=== PATIENT | female | born 1985 | race Hispanic/Latino ===

== ENCOUNTER 2018-02-24 11:34 | Emergency (ER) | payer SELFPAY ==
[~2018-02-24 11:34] MED LIST: ISOVUE-370 76%-LOCM 1 ML ONE
[2018-02-24 12:21] LABS: Bilirubin Negative (Negative); Blood, Urine Trace (Negative); Clarity CLEAR (Clear); Glucose, Urine (Dipstick) Negative (Negative); Leukocyte Large (Negative); Nitrite Negative (Negative); Protein, Urine (Dipstick) Negative (Neg-Trace); Specific Gravity, Urine 1.023 (1.002-1.036); Urobilinogen 0.2 mg/dL (0.2-1.0); pH, Urine 5.5 (5.0-9.0)
[2018-02-24 12:23] LABS: Pregnancy Test - Urine (BHCG) Negative (Negative); Pregu Control Background? CLEAR/WHITE (CLR/WHITE); Pregu Control Bar Appear? YES (CONTROL BAR); Specific Gravity 1.023 (1.002-1.036)
[2018-02-24 12:24] LABS: Bacteria/HPF None Seen HPF (None Seen); Hyaline Casts/LPF 4-6 HYALINE CAST LPF (0-3 Hyaline); Pathc Cast-AUWi Flag 0.72 (0-2.49); Squamous Epithelial 0-3 HPF (0-3); WBC/HPF 21-50 HPF (0-3)
[2018-02-24] MEDS ORDERED: Ketorolac Tromethamine 30 MG/ML VIAL ONE (12:38)
[2018-02-24] MEDS ORDERED: Dicyclomine 20 MG TAB ONE (12:38)
[2018-02-24 12:52] LABS: #Eosinphils 0.4 thou/uL (0.0-0.7); #Lymphocytes 1.7 thou/uL (1.20-3.40); #Monocytes 0.4 thou/uL (0.11-0.59); #Neutrophils 5.2 thou/uL (1.40-6.50); %Basophils 0.1 % (0.0-1.0); %Eosinophils 4.9 % (0.0-10.0); %Lymphocytes 22.5 % (21.0-51.0); %Monocytes 5.2 % (0.0-10.0); %Neutrophils 67.3 % (42.0-75.0); Hemoglobin 13.7 g/dL (12.0-16.0); Mean Corpuscular HGB CONC 32.6 g/dL (32.0-36.0); Mean Corpuscular Hemoglobin 30.4 pg (27.0-31.0); Mean Corpuscular Volume 93.4 fL (78.0-98.0); Platelet Count 249 thou/uL (130-400); RBC Distribution Width 12.4 % (11.5-14.5); Red Blood Cell (RBC) Count 4.49 mill/uL (4.20-5.40); White Blood Cell (WBC) Count 7.7 thou/uL (4.8-10.8)
[2018-02-24 13:14] LABS: ALT (SGPT) 27 U/L (8-55); AST (SGOT) 25 U/L (5-34); Albumin 4.1 g/dL (3.5-5.0); Alkaline Phosphatase 82 U/L (40-150); Anion Gap 12 mmol/L (10-20); BUN (Urea Nitrogen) 10 mg/dL (7.0-18.7); Bilirubin, Total 0.7 mg/dL (0.2-1.2); Calc. Creatinine Clearance 0 mL/min (70-130); Calcium 9.6 mg/dL (7.8-10.44); Carbon Dioxide 25 mmol/L (22-29); Chloride 109 mmol/L (98-107); Estimated GFR-MDRD Greater than 90; Globulin 3.3 g/dL (2.4-3.5); Glucose 92 mg/dL (70-105); Potassium 3.6 mmol/L (3.5-5.1); Protein, Total 7.4 g/dL (6.0-8.3); Sodium 142 mmol/L (136-145)
[2018-02-24 13:27] LABS: Lipase 15 U/L (8-78)
[2018-02-24] MEDS ORDERED: Metoclopramide HCl 10 MG/2 ML VIAL ONE (13:58)
--- NOTE | 2018-02-24 14:09 | CT ---
CT OF ABDOMEN AND PELVIS PERFORMED WITH CONTRAST ENHANCEMENT: Date: 02/24/18 HISTORY: Periumbilical pain radiating to back. History of previous gallbladder surgery. COMPARISON: 05/05/12 study. FINDINGS: The lung bases are clear of infiltrates. The liver and spleen are within normal limits of size. The liver does measure 22 cm in length, but th is mainly is related to an elongated right lobe. Liver does show suggestion of some fatty change. The pancreas shows no evidence of mass. The gallbladder has been removed. Right and left adrenal glands, and right and left kidneys are normal in appearance. There is no signi ficant periaortic or mesenteric lymphadenopathy. CT of pelvis was performed with contrast enhancement. The appendix is normal. There is a small, fat-c ontaining periumbilical hernia. No free fluid is seen. Uterus is somewhat heterogeneous in appearance . Follicles are seen involving the adnexa. IMPRESSION: 1. Fatty changes of the liver. 2. Postop cholecystectomy change. 3. Minimal sigmoid diverticulosis. 4. Normal appendix. 5. Small, fat-containing periumbilical hernia. POS: [facility]
[2018-02-24] MEDS ORDERED: cefTRIAXone\\ROCEPHIN 1 GM VIAL ONE (14:21)
[2018-02-27 23:19] LABS: Chlamydia by PCR Inconclusive (NotDetected); GC by PCR Inconclusive (NotDetected)
== END 2018-02-24 14:57 | disposition home or self-care (01) ==
LOC: ERS 11:34
DX: N73.9 Female pelvic inflammatory disease, unspecified (principal); I10 Essential (primary) hypertension; K21.9 Gastro-esophageal reflux disease without esophagitis; F41.9 Anxiety disorder, unspecified; F32.9 Major depressive disorder, single episode, unspecified; F17.210 Nicotine dependence, cigarettes, uncomplicated; Z79.899 Other long term (current) drug therapy
CPT/HCPCS: 36415; 74177; 80053; 81003; 81015; 81025; 83690; 85025; 87480; 87491; 87510; 87591; 87660; 96361; 96365; 96367; 96375; J0696; J1885; J2765

== ENCOUNTER 2018-02-25 08:38 | Emergency (ER) | payer SELFPAY ==
[2018-02-25] MEDS ORDERED: ISOVUE-370 76%-LOCM 1 ML ONE (09:05)
[2018-02-25] MEDS ORDERED: diphenhydrAMINE 50 MG/ML VIAL ONE (10:06)
[2018-02-25] MEDS ORDERED: Metoclopramide HCl 10 MG/2 ML VIAL ONE (10:07)
[2018-02-25] MEDS ORDERED: Ondansetron HCl/PF 4 MG/2 ML Vial ONE (10:07)
[2018-02-25 10:12] LABS: #Eosinphils 0.3 thou/uL (0.0-0.7); #Lymphocytes 1.5 thou/uL (1.20-3.40); #Monocytes 0.5 thou/uL (0.11-0.59); #Neutrophils 6.7 thou/uL (1.40-6.50); %Basophils 0.2 % (0.0-1.0); %Lymphocytes 16.6 % (21.0-51.0); %Monocytes 5.5 % (0.0-10.0); %Neutrophils 74.7 % (42.0-75.0); Hemoglobin 12.7 g/dL (12.0-16.0); Mean Corpuscular HGB CONC 33.5 g/dL (32.0-36.0); Mean Corpuscular Hemoglobin 31.1 pg (27.0-31.0); Mean Corpuscular Volume 92.7 fL (78.0-98.0); Mean Platelet Volume 8.8 fL (7.4-10.4); Platelet Count 234 thou/uL (130-400); RBC Distribution Width 12.2 % (11.5-14.5); White Blood Cell (WBC) Count 8.9 thou/uL (4.8-10.8)
[2018-02-25 10:19] LABS: BHCG - Serum Negative (NEGATIVE); Pregs Control Background? CLEAR/WHITE (CLR/WHITE); Pregs Control Bar Appear? YES (CONTROL BAR)
[2018-02-25 10:32] LABS: ALT (SGPT) 20 U/L (8-55); AST (SGOT) 15 U/L (5-34); Albumin 3.7 g/dL (3.5-5.0); Alkaline Phosphatase 80 U/L (40-150); Anion Gap 13 mmol/L (10-20); BUN (Urea Nitrogen) 10 mg/dL (7.0-18.7); Bilirubin, Total 0.7 mg/dL (0.2-1.2); CK (CPK) 56 U/L (29-168); Calc. Creatinine Clearance 0 mL/min (70-130); Calcium 8.9 mg/dL (7.8-10.44); Carbon Dioxide 21 mmol/L (22-29); Chloride 107 mmol/L (98-107); Estimated GFR-MDRD Greater than 90; Globulin 3.3 g/dL (2.4-3.5); Glucose 96 mg/dL (70-105); Lipase 13 U/L (8-78); Potassium 3.6 mmol/L (3.5-5.1); Sodium 137 mmol/L (136-145)
[2018-02-25] MEDS ORDERED: Ketorolac Tromethamine 30 MG/ML VIAL ONE (10:42)
--- NOTE | 2018-02-25 11:23 | CT ---
NONCONTRAST CT HEAD: DATE: 02/25/18. HISTORY: Headache. COMPARISON: 07/16/16. FINDINGS: There is no evidence of a hemorrhage, acute infarction, mass effect, or midline shift. Again noted i s mucosal thickening in each sphenoid sinus as well as involving the visualized ethmoidal air cells b ilaterally with opacification of the right frontal sinus. Maxillary antra are not seen. Visualized mastoid air cells are clear. No other interval change. IMPRESSION: 1. No acute intracranial abnormalities demonstrated. 2. Sinus disease including mucosal thickening and air fluid levels in each sphenoid sinus. POS: [facility]
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
[2018-02-25] MEDS ORDERED: traMADol HCl 50 MG TAB ONE (11:46)
--- NOTE | 2018-02-25 12:31 | ULT ---
PELVIC ULTRASOUND: HISTORY: Worsening pelvic pain. COMPARISON: CT examination done earlier today. FINDINGS: Real-time imaging of the pelvis was obtained transabdominally, as well as with an endovaginal probe. The uterus measures 5.6 x 7.1 x 10.9 cm in size. The endometrium is somewhat thickened. I do not s ee any definitive fibroids. The right and left adnexa are normal in size. On Doppler evaluation with spectral analysis, normal flow is shown to the ovaries. It is somewhat di fficult to obtain good Doppler flow due to the position of the right ovary. There is a small follicl e measuring 1.5 cm in size, involving the right adnexa. No free fluid is seen. IMPRESSION: Slightly enlarged uterus but no definite fibroids, with mild endometrial thickening, probably on the basis of menstrual cycle. POS: [facility]
--- NOTE | 2018-03-01 13:24 | EKG ---
Test Reason : Blood Pressure : / mmHG Vent. Rate : 074 BPM Atrial Rate : 074 BPM P-R Int : 136 ms QRS Dur : 084 ms QT Int : 376 ms P-R-T Axes : 032 035 056 degrees QTc Int : 417 ms Normal sinus rhythm Normal ECG Confirmed by CAYETANO BUTLER ([id number]), assistant production editor VERENA STONE ([id number]) on 03/01/2018 1:24:20 PM Referred By: Confirmed By:CAYETANO BUTLER
== END 2018-02-25 12:36 | disposition home or self-care (01) ==
LOC: ERS 08:38
DX: N73.9 Female pelvic inflammatory disease, unspecified (principal); I10 Essential (primary) hypertension; K21.9 Gastro-esophageal reflux disease without esophagitis; F41.9 Anxiety disorder, unspecified; F32.9 Major depressive disorder, single episode, unspecified; F17.210 Nicotine dependence, cigarettes, uncomplicated; Z79.899 Other long term (current) drug therapy
CPT/HCPCS: 70450; 74177; 76856; 80053; 82550; 83605; 83690; 84703; 85025; 93005; 96365; 96367; 96375; J1200; J1885; J2405; J2765; J7050

== ENCOUNTER 2018-02-27 17:24 | Emergency (ER) | payer SELFPAY ==
[2018-02-27 18:27] LABS: Bilirubin Negative (Negative); Blood, Urine Negative (Negative); Clarity CLEAR (Clear); Glucose, Urine (Dipstick) Negative (Negative); Leukocyte Trace (Negative); Nitrite Negative (Negative); Protein, Urine (Dipstick) Negative (Neg-Trace); Specific Gravity, Urine 1.014 (1.002-1.036); Urobilinogen 0.2 mg/dL (0.2-1.0); pH, Urine 6.5 (5.0-9.0)
[2018-02-27 18:29] LABS: Bacteria/HPF None Seen HPF (None Seen); Hyaline Casts/LPF 0-3 HYALINE CAST LPF (0-3 Hyaline); RBC/HPF 0-3 HPF (0-3); Squamous Epithelial 0-3 HPF (0-3); WBC/HPF 0-3 HPF (0-3)
[2018-02-27 18:31] LABS: Pregnancy Test - Urine (BHCG) Negative (Negative); Pregu Control Background? CLEAR/WHITE (CLR/WHITE); Pregu Control Bar Appear? YES (CONTROL BAR); Specific Gravity 1.014 (1.002-1.036)
[2018-02-27 19:04] LABS: #Basophils 0.1 thou/uL (0.0-0.2); #Eosinphils 0.3 thou/uL (0.0-0.7); #Monocytes 0.4 thou/uL (0.11-0.59); #Neutrophils 3.2 thou/uL (1.40-6.50); %Basophils 0.9 % (0.0-1.0); %Eosinophils 5.1 % (0.0-10.0); %Lymphocytes 34.2 % (21.0-51.0); %Neutrophils 53.9 % (42.0-75.0); Hemoglobin 12.4 g/dL (12.0-16.0); Mean Corpuscular HGB CONC 32.6 g/dL (32.0-36.0); Mean Corpuscular Hemoglobin 30.1 pg (27.0-31.0); Mean Corpuscular Volume 92.4 fL (78.0-98.0); Mean Platelet Volume 8.3 fL (7.4-10.4); Platelet Count 292 thou/uL (130-400); RBC Distribution Width 11.9 % (11.5-14.5); Red Blood Cell (RBC) Count 4.13 mill/uL (4.20-5.40); White Blood Cell (WBC) Count 5.9 thou/uL (4.8-10.8)
[2018-02-27 19:27] LABS: ALT (SGPT) 18 U/L (8-55); AST (SGOT) 16 U/L (5-34); Alkaline Phosphatase 74 U/L (40-150); Anion Gap 12 mmol/L (10-20); BUN (Urea Nitrogen) 9 mg/dL (7.0-18.7); Bilirubin, Total 0.3 mg/dL (0.2-1.2); Calc. Creatinine Clearance 0 mL/min (70-130); Calcium 9.4 mg/dL (7.8-10.44); Carbon Dioxide 24 mmol/L (22-29); Chloride 107 mmol/L (98-107); Estimated GFR-MDRD Greater than 90; Globulin 3.2 g/dL (2.4-3.5); Glucose 88 mg/dL (70-105); Lipase 19 U/L (8-78); Potassium 3.7 mmol/L (3.5-5.1); Protein, Total 7.2 g/dL (6.0-8.3); Sodium 139 mmol/L (136-145)
--- NOTE | 2018-02-27 19:30 | CT ---
CT BRAIN 02/27/18 HISTORY: Weakness. Noncontrast enhanced CT images of the brain is obtained from the base of the skull to the vertex. Bra in and bone windows obtained. Comparison made to previous CT from two days earlier. FINDINGS/IMPRESSION: No significant interval changes seen since the previous CT from two days earlier. No acute intracrani al abnormalities seen. Some paranasal mucosal disease is present. POS: [facility]
[2018-02-27] MEDS ORDERED: Dexamethasone 10 MG/ML VIAL ONE (19:48)
[2018-02-27] MEDS ORDERED: Metoclopramide HCl 10 MG/2 ML VIAL ONE (20:00)
[2018-02-27] MEDS ORDERED: diphenhydrAMINE 50 MG/ML VIAL ONE (20:00)
--- NOTE | 2018-03-01 11:20 | EKG ---
Test Reason : Blood Pressure : / mmHG Vent. Rate : 053 BPM Atrial Rate : 053 BPM P-R Int : 144 ms QRS Dur : 078 ms QT Int : 422 ms P-R-T Axes : 018 023 049 degrees QTc Int : 395 ms Sinus bradycardia Otherwise normal ECG Confirmed by BETHANIE LOEV M.D. ([id number]), editor continuity and script VERENA STONE ([id number]) on 03/01/2018 11:20:24 AM Referred By: Confirmed By:BETHANIE LOVE M.D.
== END 2018-02-28 00:13 | disposition home or self-care (01) ==
LOC: ERS 17:24
DX: I10 Essential (primary) hypertension (principal); K21.9 Gastro-esophageal reflux disease without esophagitis; F41.9 Anxiety disorder, unspecified; F32.9 Major depressive disorder, single episode, unspecified; F17.210 Nicotine dependence, cigarettes, uncomplicated; Z79.899 Other long term (current) drug therapy; J42 Unspecified chronic bronchitis
CPT/HCPCS: 36415; 70450; 80053; 81003; 81015; 81025; 83605; 83690; 85025; 93005; 96365; 96366; 96375; J1100; J1200; J2765

== ENCOUNTER 2018-05-25 20:04 | Emergency (ER) | payer SELFPAY ==
[2018-05-25] MEDS ORDERED: Ketorolac Tromethamine 30 MG/ML VIAL ONE (20:43)
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
== END 2018-05-25 21:45 | disposition home or self-care (01) ==
LOC: ERS 20:04
DX: S93.602A Unspecified sprain of left foot, initial encounter (principal); S40.011A Contusion of right shoulder, initial encounter; J42 Unspecified chronic bronchitis; K21.9 Gastro-esophageal reflux disease without esophagitis; F41.9 Anxiety disorder, unspecified; F32.9 Major depressive disorder, single episode, unspecified; F17.210 Nicotine dependence, cigarettes, uncomplicated; Z79.899 Other long term (current) drug therapy; W01.0XXA Fall on same level from slipping, tripping and stumbling without subsequent striking against object, initial encounter
CPT/HCPCS: 96372; J1885

== ENCOUNTER 2018-07-22 15:39 | Emergency (ER) | payer SELFPAY ==
[2018-07-22] MEDS ORDERED: Morphine 2 MG/ML SYRINGE ONE (16:17)
[2018-07-22] MEDS ORDERED: Ketorolac Tromethamine 30 MG/ML VIAL ONE (17:42)
[2018-07-22 19:18] LABS: Bilirubin Negative (Negative); Blood, Urine Small (Negative); Clarity CLOUDY (Clear); Glucose, Urine (Dipstick) Negative (Negative); Leukocyte Small (Negative); Nitrite Negative (Negative); Protein, Urine (Dipstick) Negative (Neg-Trace); Specific Gravity, Urine 1.022 (1.002-1.036); Urobilinogen 0.2 mg/dL (0.2-1.0); pH, Urine 5.5 (5.0-9.0)
[2018-07-22 19:19] LABS: Pregnancy Test - Urine (BHCG) Negative (Negative); Pregu Control Background? CLEAR/WHITE (CLR/WHITE); Pregu Control Bar Appear? YES (CONTROL BAR); Specific Gravity 1.022 (1.002-1.036)
[2018-07-22 19:20] LABS: Bacteria/HPF 1+ HPF (None Seen); Pathc Cast-AUWi Flag 0.87 (0-2.49)
[2018-07-22 19:32] LABS: Hyaline Casts/LPF 0-3 HYALINE CAST LPF (0-3 Hyaline)
== END 2018-07-22 20:19 | disposition home or self-care (01) ==
LOC: ERS 15:39
DX: N30.01 Acute cystitis with hematuria (principal); M54.42 Lumbago with sciatica, left side; F41.9 Anxiety disorder, unspecified; F32.9 Major depressive disorder, single episode, unspecified; F17.210 Nicotine dependence, cigarettes, uncomplicated; K21.9 Gastro-esophageal reflux disease without esophagitis
CPT/HCPCS: 81003; 81015; 81025; 85652; 86140; 87077; 87086; 87186; 96374; 96375; J1885; J2270

== ENCOUNTER 2018-07-30 21:38 | Emergency (ER) | payer SELFPAY ==
[2018-07-30] MEDS ORDERED: Ketorolac Tromethamine 60 MG/2 ML VIAL ONE (22:58)
[2018-07-30] MEDS ORDERED: diphenhydrAMINE 50 MG/ML VIAL ONE (23:48)
[2018-07-30] MEDS ORDERED: Metoclopramide HCl 10 MG/2 ML VIAL ONE (23:48)
== END 2018-07-31 01:22 | disposition home or self-care (01) ==
LOC: ERS 21:38
DX: R51 Headache (principal); K21.9 Gastro-esophageal reflux disease without esophagitis; F41.9 Anxiety disorder, unspecified; F32.9 Major depressive disorder, single episode, unspecified; F17.210 Nicotine dependence, cigarettes, uncomplicated; Z79.899 Other long term (current) drug therapy
CPT/HCPCS: 96365; 96372; 96375; J1200; J1885; J2765

== ENCOUNTER 2018-08-22 22:33 | Emergency (ER) | payer SELFPAY ==
[2018-08-23] MEDS ORDERED: Ondansetron PF 4 MG/2 ML Vial ONE (00:05)
[2018-08-23] MEDS ORDERED: Morphine 4 MG/ML VIAL ONE (00:05)
[2018-08-23 00:38] LABS: #Basophils 0.1 thou/uL (0.0-0.2); #Eosinphils 0.4 thou/uL (0.0-0.7); #Lymphocytes 3.8 thou/uL (1.20-3.40); #Monocytes 0.5 thou/uL (0.11-0.59); %Basophils 0.9 % (0.0-1.0); %Eosinophils 3.7 % (0.0-10.0); %Lymphocytes 39.2 % (21.0-51.0); %Monocytes 4.9 % (0.0-10.0); %Neutrophils 51.3 % (42.0-75.0); Hemoglobin 14.1 g/dL (12.0-16.0); Mean Corpuscular HGB CONC 33.5 g/dL (32.0-36.0); Mean Corpuscular Hemoglobin 30.5 pg (27.0-31.0); Mean Platelet Volume 8.7 fL (7.4-10.4); Platelet Count 237 thou/uL (130-400); RBC Distribution Width 12.2 % (11.5-14.5); Red Blood Cell (RBC) Count 4.63 mill/uL (4.20-5.40); White Blood Cell (WBC) Count 9.7 thou/uL (4.8-10.8)
[2018-08-23 01:02] LABS: ALT (SGPT) 31 U/L (8-55); AST (SGOT) 24 U/L (5-34); Albumin 4.6 g/dL (3.5-5.0); Alkaline Phosphatase 94 U/L (40-150); Anion Gap 14 mmol/L (10-20); BUN (Urea Nitrogen) 11 mg/dL (7.0-18.7); Bilirubin, Total 0.3 mg/dL (0.2-1.2); Calc. Creatinine Clearance 0 mL/min (70-130); Carbon Dioxide 21 mmol/L (22-29); Chloride 107 mmol/L (98-107); Estimated GFR-MDRD Greater than 90; Globulin 3.4 g/dL (2.4-3.5); Glucose 96 mg/dL (70-105); Potassium 3.4 mmol/L (3.5-5.1); Sodium 139 mmol/L (136-145)
[2018-08-23] MEDS ORDERED: Dexamethasone 4 MG TAB ONE (02:20)
[2018-08-23] MEDS ORDERED: Ketorolac Tromethamine 30 MG/ML VIAL ONE (02:20)
--- NOTE | 2018-08-23 09:30 | RAD ---
CERVICAL SPINE 3 VIEWS: Date: 08/23/18 HISTORY: Right arm pain and numbness. COMPARISON: 11/12/16. FINDINGS: Mild flexion of the cervical spine. C6, C7, and T1 are partially obscured on the lateral view, and od ontoid and C1 are partially obscured on the AP open-mouth views. No significant prevertebral soft tis thai swelling. Mild disc osteophytosis. IMPRESSION: Mild degenerative changes. Given potential radiculopathy, consideration for follow-up nonemergent MRI study might be of benefit. POS: [facility]
--- NOTE | 2018-08-23 10:15 | ULT ---
PRELIMINARY REPORT/[facility]/EMERGENCY AFTER HOURS PROCEDURE: EXAM: US Duplex Right Upper Extremity Veins, Limited EXAM DATE/TIME: 08/23/2018 12:13 AM CLINICAL HISTORY: 33 years old, female; Pain; Other: Pain, swelling RT arm TECHNIQUE: Real-time Duplex ultrasound of the Right Upper Extremity with 2-D llamas scale, color Doppler flow and spectral waveform analysis. Limited exam focused on the right upper extremity veins. COMPARISON: No relevant prior studies available. FINDINGS: Right deep veins: Unremarkable. Axillary and brachial veins are patent throughout without thrombus. N ormal Doppler waveforms. Normal compressibility and/or augmentation response. Visualized internal jugular and subclavian veins are patent. Right superficial veins: Unremarkable. Visualized cephalic and basilic veins are patent without throm bus. Soft tissues: Unremarkable. IMPRESSION: No acute findings. No evidence of deep vein thrombosis. Thank you for allowing us to participate in the care of your patient. Dictated and Authenticated by: Bear Hazel MD 08/23/2018 1:33 AM Central Time ([place] & [place]) FINAL REPORT RIGHT UPPER EXTREMITY VASCULAR DUPLEX WITH COLOR AND SPECTRAL DOPPLER IMAGING: EMERGENCY AFTER HOURS EXAM: Date: 08-23-18 Time: 12:19 a.m. FINDINGS: Visualized right jugular, subclavian, axillary, brachial, and radial and ulnar veins are patent with phasic flow and normal compressibility. Basilica and cephalic veins are patent. IMPRESSION: No evidence for deep venous thrombosis. Report in agreement with preliminary report given on-call by Sheldon. POS: [facility]
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
== END 2018-08-23 03:21 | disposition home or self-care (01) ==
LOC: ERS 22:33
DX: M54.12 Radiculopathy, cervical region (principal); K21.9 Gastro-esophageal reflux disease without esophagitis; F41.9 Anxiety disorder, unspecified; F32.9 Major depressive disorder, single episode, unspecified; F17.210 Nicotine dependence, cigarettes, uncomplicated; Z79.899 Other long term (current) drug therapy
CPT/HCPCS: 70450; 72040; 80053; 85025; 96374; 96375; J1885; J2270; J2405; J8540

== ENCOUNTER 2018-08-24 17:44 | Emergency (ER) | payer SELFPAY ==
[2018-08-24] MEDS ORDERED: HYDROcodone/Acetaminophen 5/325 mg Tablet ONE (18:14)
[2018-08-24] MEDS ORDERED: Dexamethasone 4 mg/ml Vial ONE (18:14)
== END 2018-08-24 18:35 | disposition home or self-care (01) ==
LOC: ERS 17:44
DX: M25.511 Pain in right shoulder (principal); F17.210 Nicotine dependence, cigarettes, uncomplicated
CPT/HCPCS: 99283; J1100

== ENCOUNTER 2018-08-31 13:50 | Emergency (ER) | payer SELFPAY ==
--- NOTE | 2018-08-31 15:05 | RAD ---
TWO VIEWS CHEST: DATE: 08/31/2018: PROVIDED CLINICAL HISTORY: Fall. FINDINGS: Comparison 11/12/2016. Cardiac and mediastinal silhouette is within normal limits. No focal consolida tion, pleural fluid, or pneumothorax apparent. IMPRESSION: No evidence for an acute cardiopulmonary process. POS: [facility]
[2018-08-31] MEDS ORDERED: Albuterol Sulfate 2.5 mg/0.5 ml Neb ONE ×2 (15:07→15:08)
[2018-08-31] MEDS ORDERED: Ketorolac Tromethamine 30 MG/ML VIAL ONE (15:28)
== END 2018-08-31 16:29 | disposition home or self-care (01) ==
LOC: ERS 13:50
DX: S20.211A Contusion of right front wall of thorax, initial encounter (principal); K21.9 Gastro-esophageal reflux disease without esophagitis; M19.90 Unspecified osteoarthritis, unspecified site; F17.210 Nicotine dependence, cigarettes, uncomplicated; J42 Unspecified chronic bronchitis; Z79.899 Other long term (current) drug therapy; W19.XXXA Unspecified fall, initial encounter
CPT/HCPCS: 71046; 93005; 96372; J1885; J7611

== ENCOUNTER 2018-12-07 03:26 | Emergency (ER) | payer OTHER, SELFPAY ==
[2018-12-07] MEDS ORDERED: HYDROcodone/Acetaminophen 5/325 mg Tablet ONE (03:59)
[2018-12-07 04:10] LABS: #Lymphocytes 1.6 thou/uL (1.20-3.40); #Monocytes 0.3 thou/uL (0.11-0.59); #Neutrophils 4.3 thou/uL (1.40-6.50); %Basophils 0.3 % (0.0-1.0); %Eosinophils 0.7 % (0.0-10.0); %Lymphocytes 25.6 % (21.0-51.0); %Monocytes 5.2 % (0.0-10.0); %Neutrophils 68.2 % (42.0-75.0); Hemoglobin 15.2 g/dL (12.0-16.0); Mean Corpuscular HGB CONC 33.9 g/dL (32.0-36.0); Mean Corpuscular Hemoglobin 31.3 pg (27.0-31.0); Mean Corpuscular Volume 92.3 fL (78.0-98.0); Mean Platelet Volume 8.6 fL (7.4-10.4); Platelet Count 278 thou/uL (130-400); RBC Distribution Width 12.5 % (11.5-14.5); Red Blood Cell (RBC) Count 4.86 mill/uL (4.20-5.40); White Blood Cell (WBC) Count 6.3 thou/uL (4.8-10.8)
[2018-12-07 04:15] LABS: BHCG - Serum Negative (NEGATIVE); Pregs Control Background? CLEAR/WHITE (CLR/WHITE); Pregs Control Bar Appear? YES (CONTROL BAR)
[2018-12-07 04:16] LABS: Prothrombin Time 13.2 SEC (12.0-14.7)
[2018-12-07 04:17] LABS: PTT 28.3 SEC (22.9-36.1)
[2018-12-07 04:29] LABS: Acetaminophen Less than 6.0 mcg/mL (10.0-30.0); Alcohol 210 mg/dL (Less than 10); Salicylate Less than 8.0 mg/dL (15.0-30.0)
[2018-12-07 04:30] LABS: ALT (SGPT) 52 U/L (8-55); AST (SGOT) 44 U/L (5-34); Albumin 4.5 g/dL (3.5-5.0); Alkaline Phosphatase 84 U/L (40-150); Anion Gap 18 mmol/L (10-20); BUN (Urea Nitrogen) 4 mg/dL (7.0-18.7); Bilirubin, Total Less than 0.2 mg/dL (0.2-1.2); Calc. Creatinine Clearance 0 mL/min (70-130); Calcium 9.7 mg/dL (7.8-10.44); Carbon Dioxide 17 mmol/L (22-29); Chloride 106 mmol/L (98-107); Estimated GFR-MDRD Greater than 90; Globulin 3.5 g/dL (2.4-3.5); Glucose 116 mg/dL (70-105); Lipase 33 U/L (8-78); Potassium 3.3 mmol/L (3.5-5.1); Sodium 138 mmol/L (136-145)
[2018-12-07 04:31] LABS: Amphetamine Not Detected (NotDetected); Barbiturates Screen Not Detected (NotDetected); Benzodiazepine Screen Not Detected (NotDetected); Cocaine Metabolite Screen Detected (NotDetected); Medtox Control Line Valid? VALID (VALID); Medtox Reader # READER 4; Methadone Not Detected (NotDetected); Methamphetamine Not Detected (NotDetected); Opiate Screen Not Detected (NotDetected); Oxycodone Screen Not Detected (NotDetected); Phencyclidine (PCP) Not Detected (NotDetected); THC/Cannabinoid Screen Not Detected (NotDetected); Tricyclic Screen Not Detected (NotDetected)
[2018-12-07] MEDS ORDERED: Ketorolac Tromethamine 30 MG/ML VIAL ONE (06:47)
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
[2018-12-07] MEDS ORDERED: Potassium Chloride 20 MEQ TAB ONE (10:22)
[2018-12-07] MEDS ORDERED: Bacitracin 1 PK ONE (11:28)
[2018-12-07] MEDS ORDERED: Adacel (T-DAP) 0.5 ML SYRINGE ONE (11:28)
[2018-12-07] MEDS ORDERED: Iopamidol 370 76% 100 ML VIAL ONE (11:42)
== END 2018-12-07 11:43 | disposition home or self-care (01) ==
LOC: ERS 03:26
DX: S02.2XXA Fracture of nasal bones, initial encounter for closed fracture (principal); S13.4XXA Sprain of ligaments of cervical spine, initial encounter; F10.10 Alcohol abuse, uncomplicated; E87.6 Hypokalemia; F14.10 Cocaine abuse, uncomplicated; J18.9 Pneumonia, unspecified organism; F17.210 Nicotine dependence, cigarettes, uncomplicated; M19.90 Unspecified osteoarthritis, unspecified site; Z79.899 Other long term (current) drug therapy; V89.2XXA Person injured in unspecified motor-vehicle accident, traffic, initial encounter
CPT/HCPCS: 70450; 70486; 71260; 72125; 72141; 74177; 80053; 80306; 80307; 83690; 84703; 85025; 85610; 85730; 90471; 90715; 93005; 96374; J1885; Q9967

== ENCOUNTER 2019-06-18 14:18 | Emergency (ER) | payer SELFPAY ==
[2019-06-18] MEDS ORDERED: Ketorolac Tromethamine 30 MG/ML VIAL ONE (14:42)
== END 2019-06-18 14:45 | disposition home or self-care (01) ==
LOC: ERS 14:18
DX: M79.601 Pain in right arm (principal); K21.9 Gastro-esophageal reflux disease without esophagitis; M19.90 Unspecified osteoarthritis, unspecified site; F17.210 Nicotine dependence, cigarettes, uncomplicated
CPT/HCPCS: 96372; 99283; J1885

== ENCOUNTER 2019-08-21 16:37 | Emergency (ER) | payer SELFPAY ==
[2019-08-21 17:09] LABS: #Eosinphils 0.2 thou/uL (0.0-0.7); #Lymphocytes 2.6 thou/uL (1.20-3.40); #Monocytes 0.5 thou/uL (0.11-0.59); #Neutrophils 3.1 thou/uL (1.40-6.50); %Basophils 0.5 % (0.0-1.0); %Eosinophils 3.3 % (0.0-10.0); %Lymphocytes 40.6 % (21.0-51.0); %Monocytes 7.3 % (0.0-10.0); %Neutrophils 48.2 % (42.0-75.0); Hemoglobin 13.9 g/dL (12.0-16.0); Mean Corpuscular HGB CONC 33.4 g/dL (32.0-36.0); Mean Corpuscular Hemoglobin 31.5 pg (27.0-31.0); Mean Corpuscular Volume 94.5 fL (78.0-98.0); Mean Platelet Volume 8.3 fL (7.4-10.4); Platelet Count 244 thou/uL (130-400); RBC Distribution Width 12.7 % (11.5-14.5); White Blood Cell (WBC) Count 6.4 thou/uL (4.8-10.8)
[2019-08-21 17:24] LABS: ALT (SGPT) 69 U/L (8-55); AST (SGOT) 51 U/L (5-34); Albumin 4.1 g/dL (3.5-5.0); Alkaline Phosphatase 85 U/L (40-110); Anion Gap 11 mmol/L (10-20); BUN (Urea Nitrogen) 11 mg/dL (7.0-18.7); Bilirubin, Total 0.3 mg/dL (0.2-1.2); Calc. Creatinine Clearance 0 mL/min (70-130); Calcium 9.1 mg/dL (7.8-10.44); Carbon Dioxide 24 mmol/L (22-29); Chloride 108 mmol/L (98-107); Estimated GFR-MDRD Greater than 90; Glucose 100 mg/dL (70-105); Potassium 3.9 mmol/L (3.5-5.1); Protein, Total 7.1 g/dL (6.0-8.3); Sodium 139 mmol/L (136-145)
== END 2019-08-21 18:40 | disposition home or self-care (01) ==
LOC: ERS 16:37
DX: H81.391 Other peripheral vertigo, right ear (principal); K21.9 Gastro-esophageal reflux disease without esophagitis; M19.90 Unspecified osteoarthritis, unspecified site; F41.9 Anxiety disorder, unspecified; F32.9 Major depressive disorder, single episode, unspecified; F17.210 Nicotine dependence, cigarettes, uncomplicated
CPT/HCPCS: 36415; 80053; 85025; 93005

== ENCOUNTER 2024-06-24 15:36 | Emergency (ER) | payer BC, OTHER ==
[2024-06-24] MEDS ORDERED: Dexamethasone 10 MG/ML VIAL ONE (16:32)
[2024-06-24] MEDS ORDERED: cefTRIAXone (ROCEPHIN) 1 GM VIAL ONE (16:32)
[2024-06-24] MEDS ORDERED: Lidocaine 1% MPF 2 ML VIAL ONE (16:32)
[2024-06-24] MEDS ORDERED: Ibuprofen 800 MG TAB ONE (16:49)
== END 2024-06-24 18:00 | disposition home or self-care (01) ==
LOC: ERS 15:36
DX: J18.9 Pneumonia, unspecified organism (principal); F17.210 Nicotine dependence, cigarettes, uncomplicated
CPT/HCPCS: 71046; 96372; J0696; J1100